=== PATIENT | male | born 1985 | race Caucasian/White ===

== ENCOUNTER 2016-12-15 13:34 | Emergency (ER) | payer SELFPAY ==
[~2016-12-15] VITALS: Ht 182.9 cm; Wt 77.3 kg
[2016-12-15 13:39] VITALS: TEMP 99.3
[2016-12-15] MEDS ORDERED: PEN-VEE K500 MG PO (14:20)
[2016-12-15] MEDS ORDERED: ULTRAM 50MG TAB50 MG PO (14:20)
[2016-12-15 14:40] VITALS: BP 146/92; PULSE 86
== END 2016-12-15 14:41 | disposition home or self-care (01) ==
LOC: COL.ER 13:34
DX: K08.89 Other specified disorders of teeth and supporting structures (principal); K03.81 Cracked tooth; F17.210 Nicotine dependence, cigarettes, uncomplicated
CPT/HCPCS: J1885

== ENCOUNTER 2020-03-02 09:03 | Day surgery (SDC) | payer SELFPAY ==
[~2020-03-02] VITALS: Ht 182.9 cm; Wt 80.0 kg
[~2020-03-02 09:03] MED LIST: NORCO 325 MG-51 TAB PO; PEN-VEE K500 MG PO; ULTRAM 50MG TAB50 MG PO
[2020-03-02 09:50] VITALS: BP 153/92; PULSE 76; TEMP 98.1
[2020-03-02 11:50] VITALS: BP 128/81; PULSE 70; TEMP 98
--- NOTE | 2020-03-02 11:50 | NUR ---
Patient arrives back to [facility] alert, ambulates from cart to chair with standby assist. Patient monitor applied, vitals stable. Patient's significant other at bedside. Patient given water and crackers.
[2020-03-02 12:05] VITALS: BP 107/96; PULSE 66
--- NOTE | 2020-03-02 12:05 | NUR ---
Dr Michael into see patient at this time to go over prcedure results.
--- NOTE | 2020-03-02 12:25 | NUR ---
Patient tolerated crackers and water without any nausea.
--- NOTE | 2020-03-02 12:40 | NUR ---
Dismissal instructions gone over with patient and patient's significant other. Both verbalize understanding and all questions answered.
--- NOTE | 2020-03-02 12:45 | NUR ---
Patient discharged to patient enterance via ambulation with significant other. Both leave thanking staff for services.
== END 2020-03-02 12:45 | disposition home or self-care (01) ==
LOC: SDCO 09:03
DX: K92.1 Melena (principal); K92.2 Gastrointestinal hemorrhage, unspecified; R10.84 Generalized abdominal pain; K64.2 Third degree hemorrhoids; K21.9 Gastro-esophageal reflux disease without esophagitis; I25.2 Old myocardial infarction; I10 Essential (primary) hypertension; F41.9 Anxiety disorder, unspecified; F32.9 Major depressive disorder, single episode, unspecified; F43.10 Post-traumatic stress disorder, unspecified; G89.29 Other chronic pain; F17.210 Nicotine dependence, cigarettes, uncomplicated; Z87.442 Personal history of urinary calculi; Z88.5 Allergy status to narcotic agent; Z79.899 Other long term (current) drug therapy
CPT/HCPCS: J2704; J3010; J7120